=== PATIENT | male | born 1955 | race Caucasian/White ===

== ENCOUNTER 2017-02-11 07:34 | Inpatient (IN) | payer OTHER ==
[2017-02-11] MEDS ORDERED: LACTATED RINGERS 1,000 ML ONE (07:47)
[2017-02-11 08:17] LABS: ABSOLUTE NEUTROPHIL COUNT 17.8 K/mm3 (1.8-7.7); BASO % 0.1 % (0.2-1.0); EOS % 0.1 % (0.9-2.9); HEMATOCRIT 46.3 % (32.0-52.0); HEMOGLOBIN 15.2 gm/l (14.0-18.0); IMM NEUT # 0.8 K/mm3 (0-0.2); IMM NEUT% 4.2 % (0-1); LYMPH # 0.4 (1.0-4.8); MEAN CELL VOLUME 83.9 fl (80.0-94.0); MEAN CORPUSCULAR HEMOGLOBIN 27.5 pg (27.0-31.0); MEAN CORPUSCULAR HGB CONC 32.8 g/dl (33.0-37.0); MEAN PLATELET VOLUME 12.6 fl (7.4-10.4); MONO # 0.9 (0.0-0.8); MONO % 4.3 % (4-12); NEUT % 89.3 % (43-75); PLATELET COUNT 160 K/mm3 (130-400); RED CELL DISTRIBUTION WIDTH 13.3 % (11.5-14.5)
[2017-02-11 08:31] LABS: ALB/GLOB RATIO 0.8 (>1.0); ALBUMIN 3.4 gm/dL (3.5-5.7); CALCIUM 8.9 mg/dL (8.6-10.3)
[2017-02-11] MEDS ORDERED: CEFTRIAXONE 2 GRAM DUPLEX 50 ML IV ONE (08:44)
[2017-02-11] MEDS ORDERED: SODIUM CHLORIDE 0.9% 250 ML IV ONE (08:44)
[2017-02-11] MEDS ORDERED: AZITHROMYCIN 500 MG VIAL ONE (08:44)
--- NOTE | 2017-02-11 08:47 | RAD ---
History: Dyspnea. Comparison: None. Technique: 2 views Findings: 2 views of the chest were performed demonstrating normal-appearing soft tissue and bony structures. The heart size is prominent. There is evidence of airspace consolidation within the right pulmonary base which may reflect atelectasis or infiltrate with blunting of the right costophrenic sulcus likely reflecting a component of pleural fluid. The left lung field is relatively clear. The hilar and mediastinal structures are intact. Impression: 1. Cardiomegaly. 2. Right basilar atelectasis or infiltrate with a probable component of right pleural fluid.
[2017-02-11 09:27] LABS: BAND 31 % (0-10); LYMPHOCYTE 2 % (15-45); MONOCYTE 4 % (4-12); NEUTROPHILS 63 % (43-75); TOTAL CELLS COUNTED 100
[2017-02-11 09:28] LABS: BASOPHIL 0 % (0-1); EOSINOPHIL 0 % (1-3); PLATELET ESTIMATE NORMAL (NORMAL)
[2017-02-11 09:49] LABS: VENOUS BLOOD GAS BASE EXCESS 0.7 mmol/L (-2.0-2.0); VENOUS BLOOD GAS HCO3 25.8 mmol/L (22.0-27.0)
[2017-02-11 10:58] VITALS: BMI 49.9
[2017-02-11] MEDS ORDERED: ACETAMINOPHEN 325 MG TABLET PO PRN (11:17)
[2017-02-11] MEDS ORDERED: BLISTEX LIPSTICK 1 EACH TP PRN (11:17)
[2017-02-11] MEDS ORDERED: MENTHOL/CETYLPYRD 1 EACH LOZENGE PO PRN (11:17)
[2017-02-11] MEDS ORDERED: BISACODYL 5 MG TABLET.EC PO PRN (11:17)
[2017-02-11] MEDS ORDERED: BISACODYL 10 MG SUP PR PRN (11:17)
[2017-02-11] MEDS ORDERED: SODIUM CHLORIDE 0.9% 100 ML IV PRN (11:17)
[2017-02-11] MEDS ORDERED: MAGNESIUM HYDROXIDE 30 ML UDCUP PO PRN (11:17)
[2017-02-11] MEDS ORDERED: ALBUTEROL NEB 2.5 MG/3 ML VIAL.NEB NEB PRN (11:23)
[2017-02-11] MEDS ORDERED: PUMP TUBING ONE (11:26)
[2017-02-11] MEDS: ENOXAPARIN SODIUM 40 MG/0.4 ML SYRINGE SUB-Q SCH ×2 (11:36→22:51)
[2017-02-11] MEDS: LACTATED RINGERS 1,000 ML IV SCH ×2 (11:36→18:58)
[2017-02-11] MEDS: ALBUTEROL/IPRATROPIUM 2.5/0.5 MG 3 ML/EACH DOSE NEB SCH ×3 (13:17→20:00)
--- NOTE | 2017-02-11 15:11 | HP ---
BRIAN CASTELLANO [id number] DATE OF ADMISSION: 02/11/2017 CHIEF COMPLAINT: Shortness of breath. HISTORY OF PRESENT ILLNESS: The patient is a 61-year-old male with a past medical history significant for chronic atrial fibrillation and morbid obesity who presented to [facility] Emergency Department with a 2 day history of fever, cough, and progressive shortness of breath. The cough has been productive, but he has inspected his sputum. He reports that he has chronic lower extremity edema which is unchanged. He has not noticed any positional effects on his dyspnea which is slowly getting worse. He reports he has had a fever above 100 degrees for the last 2 days, and complained of generalized malaise as well. REVIEW OF SYSTEMS: His review of systems is positive for the fever as mentioned above. He denies any earache, sore throat, or nasal congestion. He has had a cough with dyspnea, and occasional wheezing. No chest pain, or palpitations. No clear history of orthopnea. He does have chronic edema. He denies any abdominal pain, but he has had diarrhea for the last 24 hours about 5 to 6 loose stools were reported yesterday, but none today. He has not noticed any blood in his stools, or melena. He has had no nausea or vomiting. He denies any headaches, fainting, black outs, or seizures. He has had no urinary complaints. Review of systems is otherwise negative. PAST MEDICAL HISTORY: Is significant for: 1. Chronic venous stasis edema. 2. He was hospitalized last year in April for cellulitis. 3. He has had a history of chronic atrial fibrillation on aspirin daily with a CAPRI score of 1. 4. History of morbid obesity. 5. Glucose intolerance. 6. He also has been diagnosed with obstructive sleep apnea, but has not yet started CPAP therapy. 7. He denies history of hypertension. 8. He has a history of a patent foramen ovale found incidentally on echocardiogram. 9. Diverticulosis of the colon which is mild. PAST SURGICAL HISTORY: Is negative except for some dental surgery. ALLERGIES: HE HAS NO KNOWN DRUG ALLERGIES. CURRENT MEDICATIONS: He does not take any prescription medications. He is taking a full dose of aspirin 325 mg daily, but that is. FAMILY HISTORY: Family history is negative any chronic medical problems. SOCIAL HISTORY: He works as a electrical machinist. He gets his medical care through [facility]. He is a former smoker of about 20 pack years, but quit in 1983. His son and his daughter live in the household with him. He is . He drinks alcohol maybe once every other week. He is independent with his activities of daily living. IMMUNIZATIONS: He has never had a pneumonia vaccination in the past. He has refused a flu vaccination. PHYSICAL EXAMINATION: VITAL SIGNS: Temperature is 101.3. Pulse is 123. Blood pressure is 158/81. Respirations are 27. Oxygen saturations were down to 89% on room air I believe in the emergency department. Currently, he is 94% on 4 L by nasal cannula. He was treated with BiPAP therapy in the emergency department and there are plans to resume the BiPAP therapy after he eats some lunch. His body mass index is 50. His weight is 196 kilograms. GENERAL: This is an obese male in mild respiratory distress. HEENT: Exam is unremarkable. NECK: Supple without lymphadenopathy, or jugular venous distention. CHEST: His lung sounds are diminished in the bases with some slight rhonchi especially on the right side. CARDIOVASCULAR: Exam reveals an irregular tachycardia, no murmur. ABDOMEN: Obese, soft, nontender, nondistended with positive bowel sounds. EXTREMITIES: Show chronic venous stasis. Skin changes in both lower extremities with some hyperpigmentation noted. There is no ulceration. He has about 1+ pitting edema in both his lower extremities. Dorsalis pedis pulses are diminished, but 1+ in both the feet. DIAGNOSTIC IMAGING: His chest x-ray shows cardiomegaly with a right basilar infiltrate, and a possible small pleural effusion on the right. LABORATORY STUDIES: His laboratory studies show a white count elevated at 19.9, hemoglobin is 15.2, platelet count is 160,000. Differential shows 63% neutrophils with 31% bands, 2% lymphocytes. His lactate was 1.9. A venous pH was 7.39. Chemistry profile showed a sodium of 128, potassium 4.1, chloride 93, BUN 24, creatinine 0.9, glucose 146, total bilirubin 1.7, AST 36, ALT is 36. B-type natriuretic peptide is 87. Troponin I is 0.03. DIAGNOSTIC IMAGING: A 12-lead electrocardiogram shows atrial fibrillation with tachycardia. There is also evidence of an incomplete right bundle branch block. No acute ST, or T-wave changes are seen. ASSESSMENT AND PLAN: The patient has a bacterial pneumonia community acquired organism unknown associated with sepsis and acute hypoxic respiratory failure. Patient has chronic respiratory failure due to his obstructive sleep apnea. Presumably this is hypoxic. He has morbid obesity which complicates his care and chronic atrial fibrillation with mild tachycardia. He is admitted to the intermediate care unit on BiPAP therapy and treated with Rocephin and Zithromax. He will be hydrated and monitored closely. Venous thromboembolism risk is moderate, and Lovenox has been ordered adjusted for his weight. Further treatment and recommendations will depend on his hospital course. DOMONIQUE/pedro luis
[2017-02-11] MEDS: DOCUSATE SODIUM 100 MG CAPSULE PO SCH (20:43)
[2017-02-11] MEDS: METOPROLOL TARTRATE 25 MG TABLET PO SCH (21:39)
[2017-02-12 02:48] LABS: ABSOLUTE NEUTROPHIL COUNT 11.6 K/mm3 (1.8-7.7); BASO # 0.1 K/mm3 (0.0-0.2); BASO % 0.5 % (0.2-1.0); EOS % 0.1 % (0.9-2.9); HEMATOCRIT 40.9 % (32.0-52.0); HEMOGLOBIN 13.4 gm/l (14.0-18.0); IMM NEUT # 0.1 K/mm3 (0-0.2); IMM NEUT% 0.4 % (0-1); LYMPH # 0.5 (1.0-4.8); MEAN CORPUSCULAR HEMOGLOBIN 27.5 pg (27.0-31.0); MEAN CORPUSCULAR HGB CONC 32.8 g/dl (33.0-37.0); MEAN PLATELET VOLUME 11.2 fl (7.4-10.4); MONO # 1.2 (0.0-0.8); MONO % 8.7 % (4-12); NEUT % 86.3 % (43-75); PLATELET COUNT 149 K/mm3 (130-400); RED CELL DISTRIBUTION WIDTH 13.4 % (11.5-14.5)
[2017-02-12] MEDS: LACTATED RINGERS 1,000 ML IV SCH ×2 (02:50→12:23)
[2017-02-12 03:08] LABS: CALCIUM 8.4 mg/dL (8.6-10.3); MAGNESIUM 2.2 mg/dL (1.9-2.7)
[2017-02-12 03:38] LABS: BAND 6 % (0-10); BASOPHIL 0 % (0-1); EOSINOPHIL 0 % (1-3); LYMPHOCYTE 5 % (15-45); MONOCYTE 6 % (4-12); NEUTROPHILS 83 % (43-75); PLATELET ESTIMATE NORMAL (NORMAL); TOTAL CELLS COUNTED 100
[2017-02-12] MEDS ORDERED: PUMP TUBING ONE (07:27)
[2017-02-12] MEDS: ALBUTEROL/IPRATROPIUM 2.5/0.5 MG 3 ML/EACH DOSE NEB SCH ×3 (07:52→12:43)
[2017-02-12] MEDS: METOPROLOL TARTRATE 25 MG TABLET PO SCH (08:07)
[2017-02-12] MEDS: DOCUSATE SODIUM 100 MG CAPSULE PO SCH (08:07)
[2017-02-12] MEDS ORDERED: AZITHROMYCIN 500 MG in SODIUM CHLORIDE 0.9% 250 ML IV SCH (08:30)
[2017-02-12] MEDS ORDERED: CEFTRIAXONE 1 GRAM DUPLEX 1 G in Premix (D5W) 50 ml 1 EACH IV SCH (09:00)
[2017-02-12] MEDS ORDERED: ASPIRIN (UNCOATED) 325 MG TABLET PO SCH (09:00)
--- NOTE | 2017-02-12 09:53 | PDOC43 ---
- Subjective Chief Complaint: Shortness of Breath Subjective: Reports Shortness of Breath (improving, was on Bipap all night), Denies Chest Pain, Denies Fever - Objective Vital Signs Temperature 99.9 F 02/12/17 07:06 Pulse Rate 111 02/12/17 07:55 Respiratory Rate 15 02/12/17 07:55 Blood Pressure 143/105 02/12/17 07:06 O2 Saturation by Pulse Oximetry 95 02/12/17 09:21 Oxygen Delivery Method Nasal Cannula Oxygen Flow Rate 2 Intake and Output 02/11/17 02/12/17 02/13/17 06:59 06:59 06:59 Intake Total 5116 120 Output Total 1225 Balance 3891 120 General: Alert, Oriented x3, Cooperative, Moderate Distress HEENT: Mucous membr. moist/pink Lungs: Diminished at Bases (with bibasilar ronchi) Cardiovascular: Regular Rate and Rhythm Abdomen: Soft, Normal Bowel Sounds, Non-Distended, No Tenderness Extremities: No Edema Laboratory 02/12/17 02:40 02/12/17 02:40 02/12/17 02:40 MCHC 32.8 L Estimated GFR 99 H Calcium 8.4 L Phosphorus 2.0 L Current Medications: Current meds reviewed in EMR. - Problems: Assessment/Plan (1) Atrial fibrillation, chronic Status: ChronicAssessment/Plan: with tachycardia (2) Morbid obesity with BMI of 50.0-59.9, adult Status: ChronicAssessment/Plan: stable (3) Obstructive sleep apnea of adult Status: ChronicAssessment/Plan: prescribed CPAP but never picked up machine (4) Pneumonia Qualifiers: Pneumonia type: due to unspecified organism Laterality: right Lung location: lower lobe of lung Qualifier Code: (J18.1) Lobar pneumonia, unspecified organism Status: AcuteAssessment/Plan: treated with Rocephin and Zithromax (5) Respiratory failure, acute and chronic Qualifiers: Respiratory failure complication: hypoxia Qualifier Code: (J96.21) Acute and chronic respiratory failure with hypoxia Status: AcuteAssessment/ Plan: requiring Bipap continuously on admit but improving and now just needs positive airway pressure when sleeping which is likely his baseline - cont Bipap when sleeping, titrate oxygen VTE Prophylaxis: On wt adjusted Lovenox Disposition: home in 1-3 days versus transfer to [facility]
[2017-02-12 11:07] VITALS: BP 123/82
[2017-02-12] MEDS: ENOXAPARIN SODIUM 40 MG/0.4 ML SYRINGE SUB-Q SCH (12:23)
--- NOTE | 2017-02-12 12:38 | TS ---
BRIAN CASTELLANO JORGE [id number] DATE OF ADMISSION: February 11, 2017 DATE OF TRANSFER: February 12, 2017 DISPOSITION: To a [facility]. PHYSICIAN ACCEPTING THE PATIENT TRANSFER: Has not yet been determined. TRANSFERRING DIAGNOSES: 1. Acute on chronic hypoxic respiratory failure. 2. Right lower lobe bacteria pneumonia. Organism is unspecified. 3. Sepsis. 4. Obstructive sleep apnea which is chronic but untreated. 5. Morbid obesity which complicates his care. 6. Chronic atrial fibrillation with tachycardia which has been longstanding. SUMMARY OF ADMISSION AND HOSPITAL COURSE: The patient is a 61-year-old patient followed by [facility] [place] [facility] who presented to the [facility] Emergency Department with complaints of a cough and dyspnea for two days prior to presentation. In the emergency department, he was hypoxic and required BiPAP therapy. He was initially admitted to our intermediate care unit for BiPAP therapy, treated with Rocephin and Zithromax. Cultures of the blood were obtained and are pending. His chest x-ray showed a right basilar infiltrate with a small pleural effusion. Electrocardiogram showed atrial fibrillation with tachycardia, rates in the 120s. He was given Lovenox for venous thromboembolism prophylaxis. Overnight on the BiPAP therapy he responded and we were able to wean his oxygen to 1 liter by nasal cannula. It is anticipated that he will likely need another day or two in the hospital. Because he is a [facility] patient, we contacted [facility] for a lateral transfer, and patient is expected to consent to this once arrangements have been made. PHYSICAL EXAM: VITAL SIGNS: His vitals at this time include a temperature of 99.5, pulse of 107, blood pressure 123/82, respirations 23, oxygen saturation is 95% on 1 liter. Body mass index is 50.3, weight is 197.3 kilograms. GENERAL: This is an obese male in mild respiratory distress. HEENT: Exam is unremarkable. NECK: Supple without lymphadenopathy or thyromegaly. LUNGS: Lung sounds are diminished in the bases especially on the right with some rhonchi in the right base. CARDIOVASCULAR: Reveals an irregular tachycardia. ABDOMEN: Is obese, soft, nontender, nondistended with positive bowel sounds. EXTREMITIES: Show no peripheral edema. LABORATORY STUDIES: Include two blood cultures which are pending. CBC shows a white count of mild elevation at 13,000, hemoglobin is 13.4, platelet count is 149,000. Chemistry profile shows sodium 132, potassium 4.0, carbon dioxide 30, creatinine 0.8, glucose 102. DISCHARGE CONDITION: Good. ACCEPTING PHYSICIAN AND ACCEPTING FACILITY: Have yet to be determined but will be addressed prior to discharge and documented on the cover paperwork.
== END 2017-02-12 14:45 | disposition short-term general hospital (02) | DRG 871 ==
LOC: ED 07:34 → ICU 09:42
PROVIDERS: ADMIT Family Medicine; ATTEND Family Medicine
DX: A41.9 Sepsis, unspecified organism (principal); J15.9 Unspecified bacterial pneumonia; J96.21 Acute and chronic respiratory failure with hypoxia; Z68.43 Body mass index [BMI] 50.0-59.9, adult; E87.1 Hypo-osmolality and hyponatremia; G47.33 Obstructive sleep apnea (adult) (pediatric); E66.01 Morbid (severe) obesity due to excess calories; I48.2 Chronic atrial fibrillation